=== PATIENT | male | born 1935 | race Caucasian/White ===

== ENCOUNTER 2017-01-15 00:45 | Inpatient (IN) | payer OTHER ==
[2017-01-15] VITALS (10 sets, daily range): BP systolic 95–146; BP diastolic 57–84; PULSE 59–89; TEMP 34.8–36.6; O2SAT 89–97; BMI 31.5
[~2017-01-15] VITALS: Ht 193 cm; Wt 117.8 kg
[2017-01-15] MEDS: NSS + 20MEQ KCL 1000ML 1,000 ML IV SCH ×3 (00:01→17:09)
--- NOTE | 2017-01-15 04:52 | Critical Care Consultation ---
Critical Care Consultation Date of Consultation: Jan 15, 2017. Attending Physician: Mauro Warren MD Reason for Consultation: Hyperglycemia History of Present Illness Vamsi Rosales is a 81yo man with a baseline of dementia causing his history to be limited to medical records from [facility] where he arrived via EMS at 2014 on 01/14/2017 with altered mental status and hyperglycemia of 811. There is report of confusion and lethargy. His , Shana. stated Vamsi hasn't been well for a while now. His mind has been slipping and is becoming more and more forgetful. Within the past week or 2 he has gone 5 days without taking his insulin because he forgot it before bedtime, and then would not get back out of bed to take it. Per his there has been no signs of illness, no fever, no cough, no nausea, vomiting. During his stay at [facility] patient was noted to be free in the high 40s and low 50s at times, despite a pacemaker implant. Per report they did not note pacer spikes; however, they are noted on telemetry at [facility]. According to report patient was asymptomatic during bradycardic events. Patient was noted to have an elevated BUN and creatinine; however, it is unclear what the patient's baseline is, as he is known to have chronic kidney disease. EKG at the [facility] noted sinus with first-degree heart block and right bundle branch, with a heart rate of 59 bpm. There was a single PVC and diffuse mild flattening of his T waves. Chest X -ray was performed with no acute disease noted. Patient underwent CT head without contrast which also demonstrated no acute changes. Patient received 3500 mL bolus and the last note his regular insulin was running at 15 units per hour. Upon arrival to [facility], patient was alert but not oriented to self. Denying generalized pain; however, does state a "wee" bit of left sided abdominal pain in an area where superficial ecchymosis is noted. Appears to be from abdominal injections. Patient's blood sugar noted on arrival is 274. Other lab work pending. He denies fever, chills, headache, dyspnea, cough, chest pain, nausea/ vomiting, or numbness and tingling of the extremities. His temperature was noted to be 34.8 rectally. Patient is not aware of his last bowel movement. Sheriff in place to gravity. Past Medical/Surgical History Medical Problems: Hypothermia nonketotic hyperglycemic-hyperosmolar syndrome Hypothyroidism Coronary artery disease GERD Gout Secondary hyperparathyroidism COPD Anemia Diabetes mellitus Cataracts SHERMAN Arthritis Morbid obesity Cholelithiasis Carpal tunnel syndrome Baseline dementia Peripheral vascular disease Surgical Problems: Cystoscopy ICD insertion Cardiac cath with stent Carpal tunnel decompression Cholecystectomy Family History Noncontributory Social History Smoking Status: Former Smoker (20 pack year history former smoker; unknown quit date) Smokeless Tobacco Use: No Alcohol Use: none Drug Use: none Marital Status: (Shana) Housing Status: lives with significant other Occupation Status: retired Allergies Coded Allergies: HUMBERTO Inhibitors (Verified Allergy, Unknown, UNKNOWN, 01/15/17) Fluticasone (Verified Allergy, Unknown, UNKNOWN, 01/15/17) Latex1 -Allergic Contact Dermititis (Verified Allergy, Unknown, UNKNOWN, ) Milk Protein Extract (Verified Allergy, Unknown, UNKNOWN, 01/15/17) Penicillin V (Verified Allergy, Unknown, UNKNOWN, 01/15/17) Salmeterol (Verified Allergy, Unknown, UNKNOWN, 01/15/17) Home Medications Scheduled Calcitriol (Rocaltrol Cap), 1 CAP PO DAILY Carvedilol (Coreg), 1 TAB PO BID Dutasteride (Avodart), 1 CAP PO DAILY Esomeprazole Magnesium (Nexium), 40 MG PO DAILY Furosemide (Lasix), 40 MG PO DAILY Insulin Aspart (Novolog Flexpen), 10 UNITS SQ BIDM Insulin Detemir (Levemir), 35 UNITS SQ DAILY Insulin Detemir (Levemir), 30 UNITS SQ QPM Isosorbide Mononitrate Ext Rel (Imdur Ext Rel), 1 TAB PO DAILY Levothyroxine Sodium (Levothyroxine Sodium), 1 TAB PO DAILYBB Magnesium Oxide (Mag-Ox), 400 MG PO DAILY Metolazone (Zaroxolyn), 2.5 MG PO DAILY Montelukast Sodium (Montelukast Sodium), 1 TAB PO DAILY Niacin Ext Rel (Niaspan Ext Rel), 500 MG PO DAILY Oxybutynin Chloride (Oxybutynin Chloride ER), 5 MG PO DAILY Potassium Ext Rel (Klor-Con), 20 MEQ PO DAILY Ramipril (Ramipril), 1 CAP PO DAILY Rosuvastatin Calcium (Crestor), 1 TAB PO DAILY Current Inpatient Medications Current Inpatient Medications Medications (Trade) Dose Ordered Sig/Temo Route Start Time Stop Time Status Last Admin Dose Admin Acetaminophen (Tylenol Tab) 650 mg Q4H PRN PO 01/15/17 05:00 02/14/17 04:59 Levalbuterol (Xopenex 1.25MG/ 3ML Neb) 1.25 mg Q4H PRN INH 01/15/17 05:00 02/14/17 04:59 Miscellaneous Information 1 ea 1 ea UD PRN N/A 01/15/17 06:03 02/14/17 06:02 Potassium Chloride/Sodium Chloride (1/2 Nss + 20meq KCl 1000ml) 2,000 ml @ 150 mls/hr [id number] IV 01/15/17 06:00 02/14/17 05:59 01/15/17 06:17 150 MLS/HR Heparin Sodium (Porcine) (Heparin Sq 5000 Unit/0.5ml) 5,000 unit Q8 SQ 01/15/17 14:00 02/14/17 13:59 Review of Systems 12 systems reviewed and negative other than previously mentioned in the HPI. Physical Exam Date Time Temp Pulse Resp B/P Pulse Ox O2 Delivery O2 Flow Rate FiO2 01/15/17 04:15 34.8 89 20 126/82 89 Room Air Vital Signs - as noted Laboratory Data - as noted Physical Exam: General - NAD Eyes - Pupils are equal, 1-2mm, unresponsive to light, EOMI No icterus, gaze conjugate ENT - Mucosa moist, no lesions or candidiasis Neck - Supple, trachea midline, no masses or lymphadenopathy, no JVD or bruits Lungs - No paradoxical chest wall movement, clear to auscultation bilaterally, no wheezes, rales, or rhonchi Heart - Reg rate and rhythm, No murmur, rubs, clicks, or gallops appreciated Abdomen - bilateral lc-umbilical superficial ecchymotic areas, BS present, no bruits noted, tympanic to percussion, soft, nontender, nondistended, no organomegaly, obese abdomen Extremities - evidence of peripheral vascular disease erythematous areas bilateral shins, pitting edema noted, pedal pulses intact, Neuro - Not oriented to self, place, or time.. Does follow simple directions. Strength extremities equal and appropriate bilaterally Reflexes: Bicep, brachioradialis, patellar, and plantar normal and equal CN:EOMI, no facial asymmetry, uvula/tongue midline Laboratory Results Last 24 Hours Test 01/15/17 00:00 01/15/17 05:10 Urine Color YELLOW Urine Appearance CLEAR Urine pH 5.5 Urine Specific [place] 1.020 Urine Protein 1+ Urine Glucose (UA) NEG Urine Ketones NEG Urine Occult Blood 3+ Urine Nitrite NEG Urine Bilirubin NEG Urine Urobilinogen NEG Urine Leukocyte Esterase SMALL Urine RBC 10-30 /hpf Urine WBC >30 /hpf Urine Epithelial Cells 5-10 /lpf Urine Bacteria 1+ Urine Hyaline Casts 1-5 /lpf White Blood Count 13.66 K/uL Red Blood Count 3.88 M/uL Hemoglobin 12.3 g/dL Hematocrit 35.7 % Mean Corpuscular Volume 92.0 fL Mean Corpuscular Hemoglobin 31.7 pg Mean Corpuscular Hemoglobin Concent 34.5 g/dl Platelet Count 152 K/uL Mean Platelet Volume 10.5 fL Neutrophils (%) (Auto) 82.5 % Lymphocytes (%) (Auto) 11.2 % Monocytes (%) (Auto) 5.1 % Eosinophils (%) (Auto) 0.9 % Basophils (%) (Auto) 0.1 % Neutrophils # (Auto) 11.28 K/uL Lymphocytes # (Auto) 1.53 K/uL Monocytes # (Auto) 0.69 K/uL Eosinophils # (Auto) 0.12 K/uL Basophils # (Auto) 0.01 K/uL RDW Standard Deviation 41.3 fL RDW Coefficient of Variation 12.2 % Immature Granulocyte % (Auto) 0.2 % Immature Granulocyte # (Auto) 0.03 K/uL Prothrombin Time 11.4 SECONDS Prothromb Time International Ratio 1.1 Venous Blood pH 7.42 Venous Blood Partial Pressure CO2 61 mmHg Venous Blood Partial Pressure O2 31 mmHg Venous Blood HCO3 38 mmol/L Venous Blood Oxygen Saturation < 60.0 % Venous Blood Base Excess 11.3 mmol/L Sodium Level 146 mmol/L Potassium Level 3.0 mmol/L Chloride Level 102 mmol/L Carbon Dioxide Level 37 mmol/L Anion Gap 7.0 mmol/L Blood Urea Nitrogen 116 mg/dl Creatinine 2.90 mg/dl Est Creatinine Clear Calc Drug Dose 28.5 ml/min Estimated GFR () 22.6 Estimated GFR (Non- 19.5 BUN/Creatinine Ratio 39.9 Random Glucose 225 mg/dl Lactic Acid Level 2.4 mmol/L Calcium Level 9.9 mg/dl Phosphorus Level 4.0 mg/dl Magnesium Level 2.6 mg/dl Total Bilirubin 0.3 mg/dl Direct Bilirubin 0.1 mg/dl Aspartate Amino Transf (AST/SGOT) 35 U/L Alanine Aminotransferase (ALT/SGPT) 41 U/L Alkaline Phosphatase 73 U/L Troponin I 0.022 ng/ml Total Protein 7.9 gm/dl Albumin 2.8 gm/dl Lipase 238 U/L Beta-Hydroxybutyric Acid 0.88 mg/dL Procalcitonin 0.51 ng/mL Diagnostic Results CXR and CT Head Neg at Transferring Hospital EKG repeated at [facility]: Sinus Rhythm with first-degree AV block, right bundle branch block, left anterior fascicular block, bifascicular block. Ventricular rate 60 bpm QTC 502 Assessment & Plan (1) Dehydration (2) Acute on chronic renal failure (3) Bradycardia (4) Diabetes mellitus (5) Hyperglycemia without ketosis (6) Hypothermia (7) Other specified diabetes mellitus with hyperosmolarity without nonketotic hyperglycemic-hyperosmolar coma ([facility]) (8) Leukocytosis (9) Glucosuria (10) Abnormal urinalysis (11) Metabolic alkalosis with respiratory acidosis Endocrine Glucose under 300 after being noted as [address] [facility]; possible overcorrection of glucose at this time Unlikely infectious cause, suspicious for dementia and altered mental status causing noncompliance * Hold insulin temporarily secondary to potassium of 3.0; will correct potassium first * Glycemic control consult placed with pharmacy * Administer 0.45%NSS +20 of K at 150 mL per hour; follow PRP every 4 hours * Close monitoring of potassium secondary to acute on chronic renal failure Renal Baseline BUN/creatinine unknown, known chronic kidney disease, dehydration possibly exacerbating creatinine at this time BUNs/creatinine: 116/2.9 Anion gap 7.0 Beta- Hydroxybutyric Acid 0.88 Metabolic Alkalosis with Respiratory Compensation per VBG * Monitor electrolytes q 4hrs * Continue hydration as noted above; patient previously received 3.5 L resuscitation * No current indication for nephrology consult or dialysis * Strict I's and O's; Sheriff to gravity in place * Hold Home Ramipril, Klor-Con * Repeat PRP every 4 hours Electrolytes Patient's acute on chronic kidney disease in addition with hyperglycemia is at significant risk for continued electrolyte imbalances EKG now demonstrates no hyperinflated changes to the T-wave Corrected Na: Currently 149 * Monitor electrolytes as noted above * Replete potassium now in fluid resuscitation and monitor closely Neuro Patient at some risk for cerebral edema secondary to overcorrection of insulin at transferring hospital. Glucose 811 at [facility] and in the 240s on admission at [facility] Head CT at [facility] prior to glucose correction negative for acute changes * Neuro checks per protocol * Tylenol for pain; patient currently denies pain * Avoid benzodiazepines in elderly patient Cardiology Patient at risk for arrhythmias secondary to electrolyte shifts caused by insulin administration and hyperglycemia Patient denies chest pain; bradycardia noted at the [facility]. 60 bpm per EKG presently Negative troponin * Monitor on telemetry * Repeat EKG every morning * Pacemaker in place * Consider Echo this admission * Hold Home Cardiac meds in setting of bradycardia Respiratory Patient on room air with adequate saturations Chest x-ray negative at [facility] Exam benign for fluid overload VB.42/61/31/38 On Room Air * Provide supplemental oxygen as needed * Monitor VBG and signs of respiratory failure * Consider repeat chest x-ray secondary to significant fluid resuscitation; unknown ejection fraction/history of heart failure * Xopenex PRN SOB Infectious disease Hypothermic, WBCs 13.66 Lactic acid 2.4; Procalcitonin: 0.51 Unlikely infectious process * PCR influenza pending * Monitor fever curve * Follow daily CBC * Hypothermic: Continue [facility] Hematology H&H 12.3/35.7 platelets 152 Coags: PT 11.4 and INR 1.1 No acute signs of bleeding * Follow daily CBC * DVT prophylaxis: Heparin 5000 units q8hrs & SCDs ordered GI Liver Profile & Lipase WNL Hx of GERD * AHA heart healthy and diabetes type 2 mechanically soft ground diet in place with thick nectar liquid consistency * Pt unaware of last BM, monitor for need of Bowel Regimen * Begin Protonix (Home use of Nexium) Disposition * Need to work with Case management for POA if is limited in making decisions * PT/OT * Will Need to obtain PCP records: Dr. Velasquez Collado per [facility] Report CCT: 45 minutes; Not including any billable procedures. Thank you for including us in the care of this patient. Please review Dr. Estuardo Gifford's addendum for further recommendations. Resident Physician Supervision Note: Dr. Emmanuel Nielsen was resident physician during care of patient. I separately evaluated patient and did history and exam. I discussed the case with the resident and generally agree with the findings and plan. Patient still disoriented to location, unclear what his baseline is. Nursing concerned for possible aspiration as he is coughing with his meal. I made him nothing by mouth until formal speech evaluation. She is not requiring an insulin infusion, his hyperosmolar syndrome appears to be resolved. At this time the A1c is still pending. Given additional 500 mL bolus of LR, holding antihypertensives at this time. Patient's critical care needs. I have resolved , stable for downgraded from ICU status. Documented By: Estuardo Gifford, DO
[2017-01-15] MEDS ORDERED: LEVALBUTEROL 1.25MG/3ML NEB INH PRN (05:00)
[2017-01-15] MEDS ORDERED: MoRPHine SULFATE 2 MG/ML CARP IV PRN (05:00)
[2017-01-15] MEDS ORDERED: ACETAMINOPHEN 325 MG TAB PO PRN ×2 (05:00→06:15)
[2017-01-15] MEDS ORDERED: LORAZEPAM 2 MG/ML 1 ML VIAL IV PRN (05:00)
[2017-01-15] MEDS ORDERED: PATIENT'S ALLERGY INFO NEEDS ENTERED SCH (05:15)
[2017-01-15 05:24] LABS: BASO % 0.1 %; BASO ABS # 0.01 K/uL (0-0.2); EOS % 0.9 %; HEMATOCRIT 35.7 % (42-52); IG% 0.2 %; LYMPH % 11.2 %; LYMPH ABS # 1.53 K/uL (1.2-3.4); MEAN CORPUSCULAR HEMOGLOBIN 31.7 pg (25-34); MEAN PLATELET VOLUME 10.5 fL (7.4-10.4); MONO % 5.1 %; NEUT % 82.5 %; PLATELET COUNT 152 K/uL (130-400); RED BLOOD COUNT 3.88 M/uL (4.7-6.1); VEN BLOOD GAS BASE EXCESS 11.3 mmol/L; VENOUS BLOOD GAS PCO2 61 mmHg (38.0-50.0); VENOUS BLOOD GAS PO2 31 mmHg; WHITE BLOOD COUNT 13.66 K/uL (4.8-10.8)
[2017-01-15 05:25] LABS: COMPLETE YES; MEAN CORPUSCULAR HGB CONC 34.5 g/dl (32-36); VEN BLD GAS O2 SATURATION < 60.0 %
[2017-01-15] MEDS ORDERED: PNEUMOCOCCAL POLYSACCHARIDES 25 MCG/0.5 ML VIAL/SYR IM. ONE (05:30)
[2017-01-15] MEDS ORDERED: INFLUENZA VIRUS QUAD VACCINE 0.5 ML SYR IM. ONE (05:30)
[2017-01-15] MEDS ORDERED: PNEUMOCOCCAL ADMINISTRATION CHARGE ONE (05:30)
[2017-01-15] MEDS ORDERED: INFLUENZA ADMINISTRATION CHARGE ONE (05:30)
--- NOTE | 2017-01-15 05:37 | History and Physical ---
History & Physical Date & Time of Service: Jan 15, 2017 at 05:06 Chief Complaint: Altered Mental Status, Nkh, Dehydration Primary Care Physician: Velasquez Lindo D.O. History of Present Illness Source: patient 81 y/o M w/Hx DM, CHF, CAD, CKD, dementia, pacemaker. Pt was sent to [facility] due to altered mentation. He was somnolent and poorly responsive on arrival. He had several lab abnormalities including a Glucose of > 800, acute on chronic renal failure with a markedly elevated BUN. He was transferred to the ICU at [facility] for ICU management. He was hypothermic on arrival and exhibiting bradycardia into the 40s which would trigger his pacemaker. He cannot provide additional information. He has no complaints and is mildly confused on admission although he is fully awake. No additioal details were provided form [facility]. His was not able to provide a detailed medical history. Past Medical/Surgical History 1) CHF - type/grade unclear 2) COPD 3) Obesity 4) CKD - stage not known 5) SHERMAN 6) Pacemaker in situ 7) B/L cataracts 8) BPH 9) Chronic anemia 10) CAD 11) Chronic cystitis 12) DM 2 13) Hyperlipidemia 14) Hypothyroidism 15) Dysphagia 16) Unsteady gait 17) Dementia 18) Lumbar stenosis Family History cannot obtain Social History Smoking Status: Unknown if Ever Smoked Review of Systems Cannot obtain Physical Exam Vital Signs Date Time Temp Pulse Resp B/P Pulse Ox O2 Delivery O2 Flow Rate FiO2 01/15/17 04:15 34.8 89 20 126/82 89 Room Air 01/15/17 04:15 34.8 89 20 126/82 Room Air General Appearance: + pertinent finding (Overweight elderly male - appears in good spirits - does not answer quetions in detail.) Head: normocephalic, atraumatic Eyes: + pertinent finding (Pupils constricted / equal) ENT: normal ENT inspection, hearing grossly normal, TMs normal, pharynx normal Neck: supple, no adenopathy, thyroid normal, no JVD Respiratory/Chest: chest non-tender, lungs clear, + pertinent finding (Poor effort) Cardiovascular: regular rate, rhythm, no murmur, normal peripheral pulses, + pertinent finding (Faint heart sound - limited exam) Abdomen/GI: normal bowel sounds, non tender, soft, + pertinent finding ( Bruising on abdominal lower abdomen - maybe site of heparin injections) Back: normal inspection, no CVA tenderness Extremities/Musculoskelatal: normal range of motion, + pedal edema Neurologic/Psych: basket sorter II-XII nml as tested, no motor/sensory deficits, normal reflexes, + disoriented Skin: normal color, warm/dry, no rash Diagnostics Laboratory Results Results Past 24 Hours Test 01/15/17 04:59 01/15/17 05:01 01/15/17 05:02 Range/Units Microbiology Results 01/15/17 MRSA DNA Surveillance Screen, Aayush Batch Pending WBC 15.75 Hb 12.4 Platelets 134 UA (-) Na 136 K 3.8 Cl 98 Bicarb 25 BUN 129 Creat 3.5 Glu 811 Lactic 2.7 Diagnostic Radiology CXR: clear, cardiomegaly EKG Sinus - RBB - LAFB Impression Assessment and Plan 81 y/o M w/Hx DM, CHF, CAD, CKD, dementia, pacemaker. Pt was sent to [facility] due to altered mentation. He was somnolent and poorly responsive on arrival. He had several lab abnormalities including a Glucose of > 800, acute on chronic renal failure with a markedly elevated BUN. He was transferred to the ICU at [facility] for ICU management. He was hypothermic on arrival and exhibiting bradycardia into the 40s which would trigger his pacemaker. He cannot provide additional information. He has no complaints and is mildly confused on admission although he is fully awake. No additional details were provided form [facility]. His was not able to provide a detailed medical history. 1) DM / NKH - Pt arrived on insulin drip with a POC of 255. He is awake and alert - repeat labs are pending and we will continue the drip per protocol based on the results. 2) Hypothermia - no clear evidence of infection - will apply a bear hugger and check his temp periodically. recheck lactic. 3) ARF - likely acute on chronic due to severe dehydration - aggressive hydration provided - will have to monitor volume status due to CHF history 4) CHF - volume depleted currently - monitor volume status and continue IVF currently - diuretics PRN 5) Bradycardia - may be chronic as pt has pacer - appears functional on monitor 6) Dysphagia is listed in record - we do not know degree - placed on dysphagia diet 7) COPD - no desaturation or evidence of exacerbation - PRN nebs provided 8) Dementia - we have scant information regarding this pt and should make an effort to contact his primary MD Monday Full code confirmed in records - Heparin prophylaxis pending INR Total time for this admit including review of labs, meds, EKG, extensive outpt records - discussion with ER attending and Pt - 45 min - includes critical care time Level of Care Critical Care Resuscitation Status FULL RESUSCITATION VTE Prophylaxis VTE Risk Assessment Done? Y/N: Yes Risk Level: Moderate Given or contraindicated: Unfractionated heparin SQ
[2017-01-15 05:47] LABS: BETA-HYDROXYBUTYRATE 0.88 mg/dL (0.2-2.81); BUN/CREATININE RATIO 39.9 (10-20); CALCIUM 9.9 mg/dl (8.5-10.1); CREATININE 2.9 mg/dl (0.60-1.40)
[2017-01-15] MEDS ORDERED: METO2.5T PO (05:48)
[2017-01-15] MEDS ORDERED: CARV25TA2 PO (05:48)
[2017-01-15] MEDS ORDERED: ROSU20TA PO (05:48)
[2017-01-15] MEDS ORDERED: FRS/40 PO (05:48)
[2017-01-15] MEDS ORDERED: MAGN400T6 PO (05:48)
[2017-01-15] MEDS ORDERED: NXM/40 PO (05:48)
[2017-01-15] MEDS ORDERED: DUTA0.5C PO (05:48)
[2017-01-15] MEDS ORDERED: ISOS30TA3 PO (05:48)
[2017-01-15] MEDS ORDERED: LVMI SQ ×2 (05:48)
[2017-01-15] MEDS ORDERED: LEVO112T4 PO (05:48)
[2017-01-15] MEDS ORDERED: NVLGI/PEN SQ (05:48)
[2017-01-15] MEDS ORDERED: POTA20TA16 PO (05:48)
[2017-01-15] MEDS ORDERED: MONT1TAB5 PO (05:48)
[2017-01-15] MEDS ORDERED: CALC0.2510 PO (05:48)
[2017-01-15] MEDS ORDERED: RAMI5CAP PO (05:49)
[2017-01-15 05:53] LABS: INR 1.1 (0.9-1.1); PROTHROMBIN TIME (PATIENT) 11.4 SECONDS (9.0-12.0)
[2017-01-15] MEDS ORDERED: KCL IV SCH (06:00)
[2017-01-15] MEDS ORDERED: SODIUM CHLOR IV SCH (06:00)
[2017-01-15] MEDS ORDERED: PHARMACY GLYCEMIC MGMT CONSULT PRN (06:03)
[2017-01-15 06:23] LABS: MAGNESIUM 2.6 mg/dl (1.8-2.4)
[2017-01-15 06:25] LABS: MANUAL MICROSCOPIC REQUIRED? YES; URINE APPEARANCE CLEAR (CLEAR); URINE BILIRUBIN NEG (NEG); URINE COLOR YELLOW; URINE NITRITE NEG (NEG); URINE PH 5.5 (4.5-7.5); UROBILINOGEN NEG (NEG)
[2017-01-15 06:27] LABS: REVIEW REQ? NO
[2017-01-15 06:34] LABS: URINE BACTERIA 1+ (NEG); URINE WBC >30 /hpf (0-5)
[2017-01-15 06:47] LABS: INFLUENZA A PCR Neg for Influ A (NEG); INFLUENZA B PCR Neg for Influ B (NEG)
[2017-01-15] MEDS ORDERED: NIAC1TAB59 PO (07:37)
[2017-01-15] MEDS ORDERED: OXYB1TAB31 PO (07:39)
[2017-01-15] MEDS: PANTOprazole SOD 40 MG TAB PO SCH (07:52)
[2017-01-15 08:23] LABS: VEN BLD GAS O2 SATURATION 84.3 %
[2017-01-15] MEDS ORDERED: NURSING VERBAL MED ORDER ONE ×3 (08:45→12:30)
[2017-01-15] MEDS ORDERED: LACTATED RINGER'S 1000ML 500 ML IV ONE (08:45)
[2017-01-15 09:02] LABS: BUN/CREATININE RATIO 43.3 (10-20); CALCIUM 9.9 mg/dl (8.5-10.1); CREATININE 2.7 mg/dl (0.60-1.40)
--- NOTE | 2017-01-15 09:30 | DIAGNOSTIC IMAGING REPORT ---
CHEST ONE VIEW PORTABLE CLINICAL HISTORY: hypothermia dyspnea COMPARISON STUDY: No previous studies for comparison. FINDINGS: Poorly defined parenchymal infiltrate left base. Heart mildly enlarged. Implantable unipolar cardiac pacemaker/defibrillator. Right lung is clear. IMPRESSION: Mild cardia megaly. Poorly defined infiltrate left base Electronically signed by: Giovanni Bowman M.D. 01/15/2017 9:29 AM Dictated Date/Time: 01/15/2017 9:28 AM
--- NOTE | 2017-01-15 10:15 | Pharmacy Progress Note ---
Glycemic Control Intl Consult Date of Service Jan 15, 2017. Scope Glycemic Pharmacist consulted for glycemic control and to write orders per [facility] inpatient glycemic control protocol Objective Weight (Kilograms): 117.400 Accuchecks BSG (last 24hrs): Test 01/15/17 05:10 01/15/17 07:24 01/15/17 08:10 Random Glucose 225 mg/dl (70-99) 196 mg/dl (70-99) Bedside Glucose 182 mg/dl (70-99) Laboratory Data (last 24hrs) Test 01/15/17 05:10 01/15/17 08:10 Anion Gap 7.0 mmol/L 12.0 mmol/L BUN/Creatinine Ratio 39.9 43.3 Blood Urea Nitrogen 116 mg/dl 117 mg/dl Creatinine 2.90 mg/dl 2.70 mg/dl Potassium Level 3.0 mmol/L 3.0 mmol/L Sodium Level 146 mmol/L 144 mmol/L White Blood Count 13.66 K/uL Red Blood Count 3.88 M/uL Hemoglobin 12.3 g/dL Hematocrit 35.7 % Mean Corpuscular Volume 92.0 fL Mean Corpuscular Hemoglobin 31.7 pg Mean Corpuscular Hemoglobin Concent 34.5 g/dl Platelet Count 152 K/uL Mean Platelet Volume 10.5 fL Neutrophils (%) (Auto) 82.5 % Lymphocytes (%) (Auto) 11.2 % Monocytes (%) (Auto) 5.1 % Eosinophils (%) (Auto) 0.9 % Basophils (%) (Auto) 0.1 % Neutrophils # (Auto) 11.28 K/uL Lymphocytes # (Auto) 1.53 K/uL Monocytes # (Auto) 0.69 K/uL Eosinophils # (Auto) 0.12 K/uL Basophils # (Auto) 0.01 K/uL HbA1c Pending Recent Pertinent Medications Outpatient Anti-diabetic Regimen: * Levemir 35 units SQ AM + 30 units SQ PM * NovoLog 10 units SQ BIDM Assessment & Plan ASSESSMENT: * 81yo T2DM male with unknown degree of outpatient control. Suspect somewhat poor control d/t non-compliance secondary to progressing dementia * A1c ordered per protocol * Pt may benefit from simplified outpatient dosing with once a day basal insulin dosing to increase compliance * Pt transferred to [facility] with IV insulin infusion running per protocol * BSG corrected rapidly with aggressive hydration and IV insulin infusion * K+ low at 3mmol/L --> IV insulin infusion held * BSGs are still in rage despite IV insulin infusion on hold. Main therapy for HHS is HYDRATION. Average fluid loss d/t glucose osmotic diuresis is 8-10 liters in HHS. Recommend continuing fluid replacement and initiating conservative SQ insulin regimen for hyperglycemia. * ADA & AACE recommend a goal blood sugar range 140-180 mg/dl for the majority of critically ill & non-critically ill patients. However, more stringent targets may be selected in individual cases. PLAN FOR INPATIENT GLYCEMIC CONTROL: * Discontinue IV insulin infusion * Basal insulin with Lantus 10 units SQ BID (HOLD if BSG < 180mg/dl) * Titrate dosing for a goal AM fasting BSG of ~140mg/dl. Less stringent control warranted based on advanced age and dementia * NovoLog per scale ACHS or Q6hrs while NPO * Goal Range: Low 140 mg/dL - High 180 mg/dL * Correction Factor: 35 mg/dL/unit * Nutritional / Prandial insulin per carb ratio of 1 unit per 12 grams CHO consumed * Based on A1c results, evaluate outpatient regimen and simplify if possible. * Please note that the plan above was derived based on current level of insulin resistance and hospital stress. These recommendations are appropriate for inpatient admission only. Plan of care upon discharge will need to be reassessed to avoid potential outpatient hypo/hyperglycemia. Thank you.
[2017-01-15] MEDS ORDERED: GLUCOSE 40% GEL 15 GM TUBE PO PRN (10:30)
[2017-01-15] MEDS ORDERED: GLUCOSE 10 TABS/TUBE PO PRN (10:30)
[2017-01-15] MEDS ORDERED: DEXTROSE 50% 50 ML SYR IV PRN (10:30)
[2017-01-15] MEDS ORDERED: GLUCAGON FOR INJ 1 MG VIAL SQ PRN (10:30)
[2017-01-15] MEDS: POTASSIUM CHLR 10MEQ / WTR IV SCH ×4 (10:59→14:24)
[2017-01-15] MEDS: INSULIN ASPART 100 UNITS/ML 3 ML PEN SC SCH ×3 (11:00→21:00)
[2017-01-15 13:46] LABS: BUN/CREATININE RATIO 39.9 (10-20); CALCIUM 9.3 mg/dl (8.5-10.1); CREATININE 2.8 mg/dl (0.60-1.40); MAGNESIUM 2.5 mg/dl (1.8-2.4); PHOSPHORUS 4.1 mg/dl (2.5-4.9); POTASSIUM 3.5 mmol/L (3.5-5.1); PROSTATE SPECIFIC ANTIGEN 0.477 ng/ml (0.000-4.000)
--- NOTE | 2017-01-15 14:03 | Progress Note ---
Subjective Date of Service: Jan 15, 2017. Subjective Pt evaluation today including: conversation w/ patient, conversation w/ family , physical exam, chart review, lab review, review of studies, conversation w/ employment consultant, review of inpatient medication list Voiding: zee catheter in place Decreased urine output, 130ml total since 6 AM which has been 6 hour, Patient know name, and place which is hospital but does not know his birthday, and fam members name Review of Systems Constitutional: + fatigue, + weakness Eyes: No diplopia, No discharge, No eye pain, No problem reported, No redness, No see HPI, No worsening of vision ENT: No dental problems, No hearing loss, No nasal symptoms, No problem reported, No see HPI, No sore throat, No tinnitus, No trouble swallowing, No unusual epistaxis Objective Vital Signs Date Time Temp Pulse Resp B/P Pulse Ox O2 Delivery O2 Flow Rate FiO2 01/15/17 12:00 Room Air 01/15/17 12:00 36.4 76 19 127/81 90 Room Air 01/15/17 10:00 36.0 62 19 95/58 94 Room Air 01/15/17 08:00 35.4 70 21 96/57 91 Room Air 01/15/17 08:00 91 Room Air 01/15/17 06:00 59 12 105/69 97 Room Air 01/15/17 04:15 34.8 89 20 126/82 89 Room Air 01/15/17 04:15 34.8 89 20 126/82 Room Air Physical Exam General Appearance: no apparent distress, + obese Eyes: normal inspection, PERRL, EOMI, sclerae normal ENT: normal ENT inspection, hearing grossly normal, pharynx normal Neck: supple, no adenopathy, thyroid normal, no JVD, no carotid bruits, trachea midline Respiratory/Chest: chest non-tender, no respiratory distress, no accessory muscle use, + decreased breath sounds Cardiovascular: regular rate, rhythm, no edema, no gallop, no JVD, no murmur Abdomen: normal bowel sounds, non tender, soft, no organomegaly, no pulsatile mass Extremities: normal range of motion, non-tender, normal inspection, no pedal edema, no calf tenderness, normal capillary refill, pelvis stable Neurologic/Psychiatric: medical appointment scheduler II-XII nml as tested, no motor/sensory deficits, alert, normal mood/affect, oriented x 3 Skin: normal color, warm/dry, no rash Lymphatic: no adenopathy Laboratory Results Last 24 Hours Test 01/15/17 00:00 01/15/17 05:10 01/15/17 07:24 01/15/17 08:10 Urine Color YELLOW Urine Appearance CLEAR Urine pH 5.5 Urine Specific [place] 1.020 Urine Protein 1+ Urine Glucose (UA) NEG Urine Ketones NEG Urine Occult Blood 3+ Urine Nitrite NEG Urine Bilirubin NEG Urine Urobilinogen NEG Urine Leukocyte Esterase SMALL Urine RBC 10-30 /hpf Urine WBC >30 /hpf Urine Epithelial Cells 5-10 /lpf Urine Bacteria 1+ Urine Hyaline Casts 1-5 /lpf Influenza Type A (RT-PCR) Neg for Influ A Influenza Type B (RT-PCR) Neg for Influ B White Blood Count 13.66 K/uL Red Blood Count 3.88 M/uL Hemoglobin 12.3 g/dL Hematocrit 35.7 % Mean Corpuscular Volume 92.0 fL Mean Corpuscular Hemoglobin 31.7 pg Mean Corpuscular Hemoglobin Concent 34.5 g/dl Platelet Count 152 K/uL Mean Platelet Volume 10.5 fL Neutrophils (%) (Auto) 82.5 % Lymphocytes (%) (Auto) 11.2 % Monocytes (%) (Auto) 5.1 % Eosinophils (%) (Auto) 0.9 % Basophils (%) (Auto) 0.1 % Neutrophils # (Auto) 11.28 K/uL Lymphocytes # (Auto) 1.53 K/uL Monocytes # (Auto) 0.69 K/uL Eosinophils # (Auto) 0.12 K/uL Basophils # (Auto) 0.01 K/uL RDW Standard Deviation 41.3 fL RDW Coefficient of Variation 12.2 % Immature Granulocyte % (Auto) 0.2 % Immature Granulocyte # (Auto) 0.03 K/uL Prothrombin Time 11.4 SECONDS Prothromb Time International Ratio 1.1 Venous Blood pH 7.42 7.44 Venous Blood Partial Pressure CO2 61 mmHg 54 mmHg Venous Blood Partial Pressure O2 31 mmHg 50 mmHg Venous Blood HCO3 38 mmol/L 36 mmol/L Venous Blood Oxygen Saturation < 60.0 % 84.3 % Venous Blood Base Excess 11.3 mmol/L 10.0 mmol/L Sodium Level 146 mmol/L 144 mmol/L Potassium Level 3.0 mmol/L 3.0 mmol/L Chloride Level 102 mmol/L 101 mmol/L Carbon Dioxide Level 37 mmol/L 31 mmol/L Anion Gap 7.0 mmol/L 12.0 mmol/L Blood Urea Nitrogen 116 mg/dl 117 mg/dl Creatinine 2.90 mg/dl 2.70 mg/dl Est Creatinine Clear Calc Drug Dose 28.5 ml/min 30.6 ml/min Estimated GFR () 22.6 24.7 Estimated GFR (Non- 19.5 21.3 BUN/Creatinine Ratio 39.9 43.3 Random Glucose 225 mg/dl 196 mg/dl Lactic Acid Level 2.4 mmol/L Calcium Level 9.9 mg/dl 9.9 mg/dl Phosphorus Level 4.0 mg/dl Magnesium Level 2.6 mg/dl Total Bilirubin 0.3 mg/dl Direct Bilirubin 0.1 mg/dl Aspartate Amino Transf (AST/SGOT) 35 U/L Alanine Aminotransferase (ALT/SGPT) 41 U/L Alkaline Phosphatase 73 U/L Troponin I 0.022 ng/ml Total Protein 7.9 gm/dl Albumin 2.8 gm/dl Lipase 238 U/L Beta-Hydroxybutyric Acid 0.88 mg/dL Procalcitonin 0.51 ng/mL Bedside Glucose 182 mg/dl Test 01/15/17 11:01 01/15/17 11:37 01/15/17 12:51 Bedside Glucose 162 mg/dl Osmolality 344 mOsm/kg Sodium Level 145 mmol/L Potassium Level 3.5 mmol/L Chloride Level 102 mmol/L Carbon Dioxide Level 34 mmol/L Anion Gap 9.0 mmol/L Blood Urea Nitrogen 112 mg/dl Creatinine 2.80 mg/dl Est Creatinine Clear Calc Drug Dose 29.5 ml/min Estimated GFR () 23.6 Estimated GFR (Non- 20.4 BUN/Creatinine Ratio 39.9 Random Glucose 179 mg/dl Calcium Level 9.3 mg/dl Phosphorus Level 4.1 mg/dl Magnesium Level 2.5 mg/dl Prostate Specific Antigen 0.477 ng/ml Assessment and Plan 81 y/o M was sent to [facility] due to altered mentation. Per report, eating outside hospital, was somnolent and poorly responsive several lab abnormalities including a Glucose of > 800, acute on chronic renal failure with a markedly elevated BUN. was transferred to the ICU at [facility] [place] for ICU management on 01/14/2017 He was hypothermic on arrival and bradycardia into the 40s which would trigger his pacemaker. w/Hx DM, CHF, CAD, CKD, dementia, pacemaker. Pt Severe hyperglycemia DM / NKH insulin drip, was discontinued patient intake representative, he got some IV fluid, blood glucose was around 190s he is a little bit more awake and alert, I check serum osmolality was 344, with significant elevated BUN/creatinine, and decreased urine output Discussed with child care centre director, and pharmacist, has agreed to continue insulin subcutaneous for now, do not need to restart a insulin drip, Will follow-up in [facility] closely, increase IV fluid and watch from there ARF with hypernatremia, and BUN/creatinine ratio more than 20 likely acute on chronic due to severe dehydration Continue aggressive hydration Need to monitor volume status due to CHF history Hypothermia with altered mental status, mild leukocytosis, and elevated lactase , possible UTI, possible mild sepsis Continue Rocephin, follow-up culture and sensitivity, check ESR CRP, repeat chest x-ray two-view if needed, History of CHF - volume depleted currently - monitor volume status and continue IVF currently - diuretics PRN Bradycardia - may be chronic as pt has pacer - appears functional on monitor Dysphagia, will follow-up continue dysphagia diet History of COPD - no desaturation or evidence of exacerbation - PRN nebs provided Possible Dementia Full code confirmed in records and talked to patient's GI and DVT prophylaxis Continued [facility] stay due to: multiple IV medications needed Discharge planning: uncertain
[2017-01-15] MEDS: HEPARIN SOD 5000 UNIT/0.5 ML CARP SQ SCH ×2 (14:25→21:09)
--- NOTE | 2017-01-15 16:05 | DIAGNOSTIC IMAGING REPORT ---
RENAL ULTRASOUND HISTORY: Renal insufficiency acute on chronic kidney failure COMPARISON: None. FINDINGS: Right kidney: Maximum dimension 14 cm. No evidence for hydronephrosis. Moderate to significant cortical thinning Left kidney: Maximum dimension 13 cm. No evidence for hydronephrosis. Considerable cortical thinning Bladder: No bladder wall thickening. The bilateral ureteral jets were identified. IMPRESSION: Cortical thinning of both kidneys. No evidence for hydronephrosis. Electronically signed by: Giovanni Bowman M.D. 01/15/2017 4:03 PM Dictated Date/Time: 01/15/2017 4:02 PM
[2017-01-15 17:58] LABS: POTASSIUM 3.6 mmol/L (3.5-5.1)
[2017-01-15 18:04] LABS: C-REACTIVE PROTEIN 4.1 mg/dl (0-0.29)
[2017-01-15] MEDS: INSULIN GLARGINE SOLOSTAR 100 UNITS/ML 3 ML PEN SC SCH (21:00)
[2017-01-16] VITALS (7 sets, daily range): BP systolic 113–152; BP diastolic 66–89; PULSE 62–80; TEMP 36.5–37; O2SAT 92–97; Ht 193 cm; Wt 117.8 kg
[2017-01-16] MEDS: NSS + 20MEQ KCL 1000ML 1,000 ML IV SCH ×5 (00:01→23:09)
[2017-01-16 05:43] LABS: BASO % 0.1 %; BASO ABS # 0.01 K/uL (0-0.2); COMPLETE YES; HEMATOCRIT 37.1 % (42-52); IG% 0.4 %; LYMPH % 17.4 %; LYMPH ABS # 1.82 K/uL (1.2-3.4); MEAN CELL VOLUME 96.1 fL (80-100); MEAN CORPUSCULAR HEMOGLOBIN 32.1 pg (25-34); MEAN CORPUSCULAR HGB CONC 33.4 g/dl (32-36); MEAN PLATELET VOLUME 10.8 fL (7.4-10.4); MONO % 4.5 %; NEUT % 76.6 %; PLATELET COUNT 141 K/uL (130-400); RED BLOOD COUNT 3.86 M/uL (4.7-6.1); WHITE BLOOD COUNT 10.45 K/uL (4.8-10.8)
[2017-01-16 06:17] LABS: BUN/CREATININE RATIO 40.5 (10-20); CALCIUM 9.3 mg/dl (8.5-10.1); CREATININE 2.3 mg/dl (0.60-1.40); MAGNESIUM 2.3 mg/dl (1.8-2.4); POTASSIUM 3.6 mmol/L (3.5-5.1)
[2017-01-16] MEDS: HEPARIN SOD 5000 UNIT/0.5 ML CARP SQ SCH ×3 (06:23→21:26)
[2017-01-16 06:24] LABS: PHOSPHORUS 2.9 mg/dl (2.5-4.9)
[2017-01-16 07:11] LABS: ESTIMATED AVERAGE GLUCOSE 289 mg/dl; HA1C FLAG Normal (Normal)
[2017-01-16] MEDS: PANTOprazole SOD 40 MG TAB PO SCH (07:56)
[2017-01-16] MEDS: INSULIN GLARGINE SOLOSTAR 100 UNITS/ML 3 ML PEN SC SCH (08:14)
[2017-01-16] MEDS: INSULIN ASPART 100 UNITS/ML 3 ML PEN SC SCH ×3 (08:20→16:52)
--- NOTE | 2017-01-16 09:19 | Pharmacy Progress Note ---
Glycemic Control: Progress Nt Date of Service Jan 16, 2017. Scope Glycemic Pharmacist consulted by Carolina Nielsen PA-C on 01-15-17 for glycemic control and to write orders per [facility] inpatient glycemic control protocol. Objective Accuchecks BSG (last 24hrs): Test 01/15/17 11:01 01/15/17 12:51 01/15/17 18:07 01/15/17 21:06 Bedside Glucose 162 mg/dl (70-99) 170 mg/dl (70-99) 163 mg/dl (70-99) Random Glucose 179 mg/dl (70-99) Test 01/16/17 05:20 01/16/17 06:32 Random Glucose 175 mg/dl (70-99) Bedside Glucose 184 mg/dl (70-99) Laboratory Data (last 24hrs) Test 01/15/17 12:51 01/15/17 17:18 01/16/17 05:20 Anion Gap 9.0 mmol/L 8.0 mmol/L BUN/Creatinine Ratio 39.9 40.5 Blood Urea Nitrogen 112 mg/dl 93 mg/dl Creatinine 2.80 mg/dl 2.30 mg/dl Potassium Level 3.5 mmol/L 3.6 mmol/L 3.6 mmol/L Sodium Level 145 mmol/L 148 mmol/L White Blood Count 10.45 K/uL Red Blood Count 3.86 M/uL Hemoglobin 12.4 g/dL Hematocrit 37.1 % Mean Corpuscular Volume 96.1 fL Mean Corpuscular Hemoglobin 32.1 pg Mean Corpuscular Hemoglobin Concent 33.4 g/dl Platelet Count 141 K/uL Mean Platelet Volume 10.8 fL Neutrophils (%) (Auto) 76.6 % Lymphocytes (%) (Auto) 17.4 % Monocytes (%) (Auto) 4.5 % Eosinophils (%) (Auto) 1.0 % Basophils (%) (Auto) 0.1 % Neutrophils # (Auto) 8.01 K/uL Lymphocytes # (Auto) 1.82 K/uL Monocytes # (Auto) 0.47 K/uL Eosinophils # (Auto) 0.10 K/uL Basophils # (Auto) 0.01 K/uL HbA1c: Test 01/15/17 05:10 Hemoglobin A1c 11.7 % (4.5-5.6) H Recent Pertinent Medications Outpatient Anti-diabetic Regimen: * Levemir 35 units SQ AM + 30 units SQ PM * NovoLog 10 units SQ BIDM * A1c 11.7% 01/05/17 * EAG: ~289 mg/dL The patient is currently receiving: * Basal insulin: Lantus BID -0 units if BSG <180 mg/dL -10 units if BSG >181 mg/dL * Correctional Insulin: Novolog Correction per scale ACHS Goal Range: Low 140 mg/dL - High 180 mg/dL Correction Factor: 40 mg/dL/unit * Prandial insulin: Per carb ratio of 1 unit per 15 grams CHO consumed Risk Factors for Insulin Resistance: * Diet: NPO Assessment & Plan ASSESSMENT: * 81yo T2DM male with grossly uncontrolled diabetes as outpatient as evidenced by A1c 11.7% this AM. * Poor control was expected d/t non-compliance secondary to progressing dementia * Pt may benefit from simplified outpatient dosing with once a day basal insulin dosing to increase compliance * Pt transferred to [facility] 01/15/17 with IV insulin infusion running per protocol * Insulin drip held and patient transitioned to SQ basal/bolus regimen * Patient received 0 units of insulin SQ yesterday * Continue current regimen X 24 hours and reassess in the AM * ADA & AACE recommend a goal blood sugar range 140-180 mg/dl for the majority of critically ill & non-critically ill patients. However, more stringent targets may be selected in individual cases. PLAN FOR INPATIENT GLYCEMIC CONTROL: * Basal insulin with Lantus 10 units SQ BID (HOLD if BSG < 180mg/dl) * Titrate dosing for a goal AM fasting BSG of ~140mg/dl. Less stringent control warranted based on advanced age and dementia * NovoLog per scale ACHS + 0200 check * Goal Range: Low 140 mg/dL - High 180 mg/dL * Correction Factor: 40 mg/dL/unit * Nutritional / Prandial insulin per carb ratio of 1 unit per 15 grams CHO consumed * A1c added to D/C instructions RECOMMENDATIONS FOR DISCHARGE: * Goal: simplify regimen * Continue to monitor insulin needs and make recommendation closer to discharge * Please note that the plan above was derived based on current level of insulin resistance and hospital stress. These recommendations are appropriate for inpatient admission only. Plan of care upon discharge will need to be reassessed to avoid potential outpatient hypo/hyperglycemia. Thank you.
--- NOTE | 2017-01-16 13:34 | DIAGNOSTIC IMAGING REPORT ---
VIDEO SWALLOW STUDY CLINICAL HISTORY: Aspiration. COMPARISON STUDY: No priors. Fluoroscopy time: 1.4 minutes. FINDINGS: Fluoroscopic guidance was provided to the Department of speech pathology in performing a video swallow study. The patient consumed barium impregnated pudding, nectar thick liquids, and thin barium while the swallowing mechanism was observed in real-time. Silent aspiration was seen with the thin barium and nectar thick liquid textures. No penetration was seen with the pudding texture. Heavy pharyngeal residuals were noted. IMPRESSION: Silent aspiration was seen with thin barium and nectar thick liquid textures. See dedicated speech pathology report for detailed findings and recommendations. Dictated: 01/16/2017 12:22 PM Transcribed: 01/16/2017 1:33 PM [email or web address] Electronically signed by: Vinay Valdivia M.D. 01/16/2017 1:53 PM Dictated Date/Time: 01/16/2017 12:22 PM
--- NOTE | 2017-01-16 15:21 | Hospitalist Progress Note ---
Hospitalist Progress Note Date of Service Jan 16, 2017. Subjective Pt evaluation today including: conversation w/ patient, conversation w/ family , chart review, lab review Medications Medications (Trade) Dose Ordered Sig/Temo Route Start Time Stop Time Status Last Admin Dose Admin Insulin Glargine (Lantus Solostar Pen) SEE PROTOCOL TEXT BID SC 01/15/17 21:00 02/14/17 20:59 01/16/17 08:14 5 UNIT Objective Vital Signs Date Time Temp Pulse Resp B/P Pulse Ox O2 Delivery O2 Flow Rate FiO2 01/16/17 15:11 Room Air 01/16/17 14:11 96 01/16/17 12:25 37.0 68 20 134/66 92 Room Air 01/16/17 11:31 Room Air 01/16/17 08:05 36.8 64 20 152/89 95 Room Air 01/16/17 08:00 Room Air 01/16/17 04:34 36.5 66 20 134/74 96 Room Air 01/16/17 04:00 Room Air 01/16/17 00:01 Room Air 01/15/17 23:21 36.6 65 22 146/84 93 Room Air 01/15/17 20:00 97 Room Air 01/15/17 19:30 36.5 65 20 117/76 97 Room Air 01/15/17 16:00 92 Room Air Physical Exam General Appearance: no apparent distress Eyes: sclerae normal ENT: hearing grossly normal Neck: trachea midline Respiratory/Chest: chest non-tender, lungs clear Cardiovascular: regular rate, rhythm, no gallop Abdomen: soft, no organomegaly Neurologic/Psychiatric: alert Laboratory Results Last 24 Hours Test 01/15/17 17:18 01/15/17 18:07 01/15/17 21:06 01/16/17 05:20 Erythrocyte Sedimentation Rate 40 mm/hr Potassium Level 3.6 mmol/L 3.6 mmol/L Osmolality 342 mOsm/kg C-Reactive Protein 4.10 mg/dl Bedside Glucose 170 mg/dl 163 mg/dl White Blood Count 10.45 K/uL Red Blood Count 3.86 M/uL Hemoglobin 12.4 g/dL Hematocrit 37.1 % Mean Corpuscular Volume 96.1 fL Mean Corpuscular Hemoglobin 32.1 pg Mean Corpuscular Hemoglobin Concent 33.4 g/dl Platelet Count 141 K/uL Mean Platelet Volume 10.8 fL Neutrophils (%) (Auto) 76.6 % Lymphocytes (%) (Auto) 17.4 % Monocytes (%) (Auto) 4.5 % Eosinophils (%) (Auto) 1.0 % Basophils (%) (Auto) 0.1 % Neutrophils # (Auto) 8.01 K/uL Lymphocytes # (Auto) 1.82 K/uL Monocytes # (Auto) 0.47 K/uL Eosinophils # (Auto) 0.10 K/uL Basophils # (Auto) 0.01 K/uL RDW Standard Deviation 43.4 fL RDW Coefficient of Variation 12.6 % Immature Granulocyte % (Auto) 0.4 % Immature Granulocyte # (Auto) 0.04 K/uL Sodium Level 148 mmol/L Chloride Level 108 mmol/L Carbon Dioxide Level 32 mmol/L Anion Gap 8.0 mmol/L Blood Urea Nitrogen 93 mg/dl Creatinine 2.30 mg/dl Est Creatinine Clear Calc Drug Dose 35.9 ml/min Estimated GFR () 30.0 Estimated GFR (Non- 25.9 BUN/Creatinine Ratio 40.5 Random Glucose 175 mg/dl Calcium Level 9.3 mg/dl Phosphorus Level 2.9 mg/dl Magnesium Level 2.3 mg/dl Test 01/16/17 06:32 01/16/17 12:14 Bedside Glucose 184 mg/dl 197 mg/dl Assessment and Plan 81 y/o M transferred to the ICU at [facility] for ICU management on 01/14/2017 He was hypothermic on arrival and bradycardia into the 40s with marked glucose elevation 1. Severe hyperglycemia DM / NKH initially managed with insulin gtt, now basal bolus resolving. 2. ARF with hypernatremia, felt secondary to dehydration cautious hydration with h/o heart failure with hyperglycemia improving with hydration 3. Hypothermia with altered mental status, mild leukocytosis, and elevated lactase, possible UTI, possible left basilar pneumonia Rocephin, follow-up culture and sensitivity continue rocephin. 4. Bradycardia - may be chronic as pt has pacer - has improved with correction of metabolic abnormalities 5. Dysphagia, aspiration precautions and dysphagia diet 6. COPD -stable - PRN nebs provided 7. heparin sc for dvt prevention Full code confirmed in records and talked to patient's by Dr Chapman Continued [facility] stay due to: multiple IV medications needed Discharge planning: uncertain Discharge planning: residential facility (may need once ready for discharge for short term rehab)
[2017-01-16] MEDS ORDERED: NURSING VERBAL MED ORDER ONE (21:00)
[2017-01-17] VITALS: O2SAT 96
[2017-01-17 00:04] VITALS: BP 141/81; PULSE 71; TEMP 36.6; O2SAT 97
[2017-01-17] MEDS: INSULIN ASPART 100 UNITS/ML 3 ML PEN SC SCH ×4 (00:54→17:59)
[2017-01-17] MEDS ORDERED: INSULIN ASPART 100 UNITS/ML 3 ML PEN SC SCH (02:00)
[2017-01-17] MEDS: HEPARIN SOD 5000 UNIT/0.5 ML CARP SQ SCH ×3 (06:33→21:08)
[2017-01-17 06:54] LABS: BASO % 0.1 %; BASO ABS # 0.01 K/uL (0-0.2); COMPLETE YES; EOS % 1.5 %; HEMATOCRIT 36.4 % (42-52); IG% 0.1 %; LYMPH % 19.9 %; LYMPH ABS # 1.62 K/uL (1.2-3.4); MEAN CELL VOLUME 97.1 fL (80-100); MEAN CORPUSCULAR HEMOGLOBIN 32.3 pg (25-34); MEAN CORPUSCULAR HGB CONC 33.2 g/dl (32-36); MEAN PLATELET VOLUME 10.7 fL (7.4-10.4); MONO % 6.6 %; NEUT % 71.8 %; PLATELET COUNT 141 K/uL (130-400); RED BLOOD COUNT 3.75 M/uL (4.7-6.1); WHITE BLOOD COUNT 8.15 K/uL (4.8-10.8)
[2017-01-17 07:19] LABS: BUN/CREATININE RATIO 36.4 (10-20); MAGNESIUM 2.1 mg/dl (1.8-2.4); POTASSIUM 3.6 mmol/L (3.5-5.1)
[2017-01-17 07:25] LABS: PHOSPHORUS 2.2 mg/dl (2.5-4.9)
[2017-01-17] MEDS: PANTOprazole SOD 40 MG TAB PO SCH (07:30)
[2017-01-17] MEDS: INSULIN GLARGINE SOLOSTAR 100 UNITS/ML 3 ML PEN SC SCH (07:34)
[2017-01-17 07:35] VITALS: BP 168/72; PULSE 74; TEMP 36.8; O2SAT 96
[2017-01-17] MEDS ORDERED: INSULIN GLARGINE SOLOSTAR 100 UNITS/ML 3 ML PEN SC SCH (08:00)
[2017-01-17] MEDS: NSS + 20MEQ KCL 1000ML 1,000 ML IV SCH ×2 (08:55→13:56)
--- NOTE | 2017-01-17 09:28 | Pharmacy Progress Note ---
Glycemic Control: Progress Nt Date of Service Jan 17, 2017. Scope Glycemic Pharmacist consulted by Carolina Nielsen PA-C on 01/15/17 for glycemic control and to write orders per [facility] inpatient glycemic control protocol. Objective Accuchecks BSG (last 24hrs): Test 01/16/17 12:14 01/16/17 16:39 01/17/17 02:18 01/17/17 06:34 Bedside Glucose 197 mg/dl (70-99) 214 mg/dl (70-99) 141 mg/dl (70-99) 157 mg/dl (70-99) Test 01/17/17 06:36 Random Glucose 164 mg/dl (70-99) Laboratory Data (last 24hrs) Test 01/17/17 06:36 Anion Gap 8.0 mmol/L BUN/Creatinine Ratio 36.4 Blood Urea Nitrogen 73 mg/dl Creatinine 2.00 mg/dl Potassium Level 3.6 mmol/L Sodium Level 150 mmol/L White Blood Count 8.15 K/uL Red Blood Count 3.75 M/uL Hemoglobin 12.1 g/dL Hematocrit 36.4 % Mean Corpuscular Volume 97.1 fL Mean Corpuscular Hemoglobin 32.3 pg Mean Corpuscular Hemoglobin Concent 33.2 g/dl Platelet Count 141 K/uL Mean Platelet Volume 10.7 fL Neutrophils (%) (Auto) 71.8 % Lymphocytes (%) (Auto) 19.9 % Monocytes (%) (Auto) 6.6 % Eosinophils (%) (Auto) 1.5 % Basophils (%) (Auto) 0.1 % Neutrophils # (Auto) 5.85 K/uL Lymphocytes # (Auto) 1.62 K/uL Monocytes # (Auto) 0.54 K/uL Eosinophils # (Auto) 0.12 K/uL Basophils # (Auto) 0.01 K/uL HbA1c: Test 01/15/17 05:10 Hemoglobin A1c 11.7 % (4.5-5.6) H Recent Pertinent Medications Outpatient Anti-diabetic Regimen: * Levemir 35 units SQ AM + 30 units SQ PM * NovoLog 10 units SQ BIDM * A1c 11.7% 01/05/17 * EAG: ~289 mg/dL The patient is currently receiving: * Basal insulin: Lantus BID -0 units if BSG <180 mg/dL -10 units if BSG >181 mg/dL * Correctional Insulin: Novolog Correction per scale ACHS Goal Range: Low 140 mg/dL - High 180 mg/dL Correction Factor: 40 mg/dL/unit * Prandial insulin: Per carb ratio of 1 unit per 15 grams CHO consumed Risk Factors for Insulin Resistance: * Diet: NPO Assessment & Plan ASSESSMENT: * 81yo T2DM male with grossly uncontrolled diabetes as outpatient as evidenced by A1c 11.7% * Poor control was expected d/t non-compliance secondary to progressing dementia * Pt may benefit from simplified outpatient dosing with once a day basal insulin dosing to increase compliance * BSGs have ranged between 184-214 mg/dL the past 24 hours * Pt remains NPO due to failed swallow eval * A total of 9 units of insulin given yesterday * Give small dose of Lantus this AM as this seems to be appropriate for now * Maintain current Novolog coverage with the exception of tightening goal range slightly * Of note, renal function slowly improving- will monitor closely as this will play a role in insulin sensitivity * ADA & AACE recommend a goal blood sugar range 140-180 mg/dl for the majority of critically ill & non-critically ill patients. However, more stringent targets may be selected in individual cases. Tighten to 120-160 mg/dL- current NPO status makes it difficult to correct BSGs without tighter goal range. PLAN FOR INPATIENT GLYCEMIC CONTROL: * Basal insulin with Lantus 5 units daily * Less stringent control warranted based on advanced age and dementia * NovoLog per scale ACHS * Goal Range: Low 120 mg/dL - High 160 mg/dL * Correction Factor: 40 mg/dL/unit * Nutritional / Prandial insulin per carb ratio of 1 unit per 15 grams CHO consumed * A1c added to D/C instructions RECOMMENDATIONS FOR DISCHARGE: * Goal: simplify regimen * Pt requiring much less insulin here versus outpatient, also has been NPO since admitted with poor renal function * Expect needs to change but need to assess closer to discharge * Unable to make recommendation until case management weighs in * Per CDEs note, family is not helping patient administer insulin doses- this is dangerous given dementia- pt unreliable * Please note that the plan above was derived based on current level of insulin resistance and hospital stress. These recommendations are appropriate for inpatient admission only. Plan of care upon discharge will need to be reassessed to avoid potential outpatient hypo/hyperglycemia. Thank you.
[2017-01-17 15:30] VITALS: BP 148/89; PULSE 66; TEMP 36.6; O2SAT 94
[2017-01-17 16:12] VITALS: O2SAT 94
[2017-01-17] MEDS: SODIUM CHLOR 0.45% + 20MEQ KCL 1,000 ML IV SCH (18:00)
--- NOTE | 2017-01-17 18:37 | Hospitalist Progress Note ---
Hospitalist Progress Note Date of Service Jan 17, 2017. Subjective Pt evaluation today including: conversation w/ patient, conversation w/ family Pain: 0 PO Intake: NPO patient is still confused, symptoms are improving will repeat swallowing eval Neurologic: + problem reported (has not returned to his baseline....improving) Objective Vital Signs Date Time Temp Pulse Resp B/P Pulse Ox O2 Delivery O2 Flow Rate FiO2 01/17/17 15:30 36.6 66 20 148/89 94 Room Air 01/17/17 08:00 Room Air 01/17/17 07:35 36.8 74 18 168/72 96 Room Air 01/17/17 00:04 36.6 71 20 141/81 97 Room Air 01/17/17 00:00 96 Room Air 01/16/17 20:02 36.5 62 18 134/76 96 Room Air Physical Exam General Appearance: no apparent distress Eyes: sclerae normal ENT: hearing grossly normal Neck: supple Respiratory/Chest: chest non-tender Cardiovascular: regular rate, rhythm Abdomen: normal bowel sounds Extremities: normal range of motion Laboratory Results Last 24 Hours Test 01/17/17 00:50 01/17/17 02:18 01/17/17 06:34 01/17/17 06:36 Bedside Glucose 195 mg/dl 141 mg/dl 157 mg/dl White Blood Count 8.15 K/uL Red Blood Count 3.75 M/uL Hemoglobin 12.1 g/dL Hematocrit 36.4 % Mean Corpuscular Volume 97.1 fL Mean Corpuscular Hemoglobin 32.3 pg Mean Corpuscular Hemoglobin Concent 33.2 g/dl Platelet Count 141 K/uL Mean Platelet Volume 10.7 fL Neutrophils (%) (Auto) 71.8 % Lymphocytes (%) (Auto) 19.9 % Monocytes (%) (Auto) 6.6 % Eosinophils (%) (Auto) 1.5 % Basophils (%) (Auto) 0.1 % Neutrophils # (Auto) 5.85 K/uL Lymphocytes # (Auto) 1.62 K/uL Monocytes # (Auto) 0.54 K/uL Eosinophils # (Auto) 0.12 K/uL Basophils # (Auto) 0.01 K/uL RDW Standard Deviation 45.5 fL RDW Coefficient of Variation 12.9 % Immature Granulocyte % (Auto) 0.1 % Immature Granulocyte # (Auto) 0.01 K/uL Sodium Level 150 mmol/L Potassium Level 3.6 mmol/L Chloride Level 114 mmol/L Carbon Dioxide Level 28 mmol/L Anion Gap 8.0 mmol/L Blood Urea Nitrogen 73 mg/dl Creatinine 2.00 mg/dl Est Creatinine Clear Calc Drug Dose 41.3 ml/min Estimated GFR () 35.5 Estimated GFR (Non- 30.6 BUN/Creatinine Ratio 36.4 Random Glucose 164 mg/dl Calcium Level 9.0 mg/dl Phosphorus Level 2.2 mg/dl Magnesium Level 2.1 mg/dl Test 01/17/17 11:49 Bedside Glucose 157 mg/dl Assessment and Plan 81 y/o M transferred to the ICU at [facility] for ICU management on 01/14/2017 He was hypothermic on arrival and bradycardia into the 40s with marked glucose elevation 1. Severe hyperglycemia DM / NKH initially managed with insulin gtt, now basal bolus resolving. Will check CT of head and repeat swallowing eval tomorrow discussed with the patient's daughter. 2. ARF with hypernatremia, felt secondary to dehydration cautious hydration with h/o heart failure with hyperglycemia improving with hydration Acute on chronic renal failure. Continue iv hydration change to .5NS with 20 kcl. 3. Hypothermia with altered mental status, mild leukocytosis, and elevated lactase, possible UTI, possible left basilar pneumonia Rocephin, follow-up culture and sensitivity continue rocephin. 4. Bradycardia - may be chronic as pt has pacer - has improved with correction of metabolic abnormalities 5. Dysphagia, aspiration precautions and dysphagia diet 6. COPD -stable - PRN nebs provided 7. heparin sc for dvt prevention Full code confirmed in records and talked to patient's by Dr Chapman Continued [facility] stay due to: multiple IV medications needed Discharge planning: uncertain [facility]charge planning[facility] facility
--- NOTE | 2017-01-17 19:23 | DIAGNOSTIC IMAGING REPORT ---
HEAD CT NONCONTRAST CT DOSE: 712.55 mGy.cm HISTORY: change in mental status TECHNIQUE: Multiaxial CT images of the head were performed without the use of intravenous contrast. Automated exposure control was utilized for this study. Comparison: None. Findings: The paranasal sinuses and mastoid air cells are clear. The calvarium and skull base are intact. There is no mass, hematoma, midline shift, acute infarct. White matter hypodensity is nonspecific but suggestive of microvascular ischemic change. The ventricles and sulci demonstrate mild age-related involutional changes. Impression: No acute intracranial abnormality. Atrophy and microvascular ischemic changes. Electronically signed by: Mukesh Hayes M.D. 01/17/2017 7:22 PM Dictated Date/Time: 01/17/2017 7:16 PM
[2017-01-18] VITALS: O2SAT 94
[2017-01-18] MEDS: SODIUM CHLOR 0.45% + 20MEQ KCL 1,000 ML IV SCH ×3 (01:00→17:20)
[2017-01-18 01:29] VITALS: BP 176/84; PULSE 63; TEMP 36.7; O2SAT 96
[2017-01-18] MEDS: INSULIN ASPART 100 UNITS/ML 3 ML PEN SC SCH ×5 (06:00→22:00)
[2017-01-18] MEDS: HEPARIN SOD 5000 UNIT/0.5 ML CARP SQ SCH ×3 (06:39→22:07)
[2017-01-18 07:31] LABS: BASO % 0.1 %; BASO ABS # 0.01 K/uL (0-0.2); COMPLETE YES; EOS % 1.8 %; HEMATOCRIT 39.1 % (42-52); IG% 0.2 %; LYMPH ABS # 1.36 K/uL (1.2-3.4); MEAN CORPUSCULAR HEMOGLOBIN 32.3 pg (25-34); MEAN PLATELET VOLUME 10.6 fL (7.4-10.4); MONO % 8.5 %; NEUT % 73.4 %; PLATELET COUNT 148 K/uL (130-400); RED BLOOD COUNT 3.99 M/uL (4.7-6.1); WHITE BLOOD COUNT 8.49 K/uL (4.8-10.8)
[2017-01-18] MEDS: PANTOprazole SOD 40 MG TAB PO SCH (08:00)
[2017-01-18 08:03] LABS: BUN/CREATININE RATIO 27.9 (10-20); CALCIUM 9.1 mg/dl (8.5-10.1); CREATININE 1.8 mg/dl (0.60-1.40); MAGNESIUM 1.8 mg/dl (1.8-2.4); PHOSPHORUS 2.2 mg/dl (2.5-4.9); POTASSIUM 3.9 mmol/L (3.5-5.1)
[2017-01-18] MEDS: INSULIN GLARGINE SOLOSTAR 100 UNITS/ML 3 ML PEN SC SCH (08:14)
[2017-01-18 08:22] VITALS: BP 146/83; PULSE 68; TEMP 36.6; O2SAT 97
--- NOTE | 2017-01-18 12:02 | DIAGNOSTIC IMAGING REPORT ---
VIDEO SWALLOW HISTORY: Aspiration Prior failed video swallow TECHNIQUE: Video fluoroscopic evaluation of swallowing was performed in the AP and lateral projections by the speech pathology staff. The patient is fed nectar-thick and thin liquid barium, a barium coated wafer, and barium pudding. FLUOROSCOPY TIME: 2 minutes. COMPARISON STUDY: 01/16/2017 FINDINGS: Persistent signs aspiration with thin liquids. No significant cough reflex. Thickened liquids all show intermittent aspiration. Moderate vallecular pooling. IMPRESSION: 1. Aspiration is again noted with thin liquids and thickened liquids. No major change from the prior study. No significant cough reflex 2. Please see the speech pathologist report for detailed findings and recommendations. Electronically signed by: Giovanni Bowman M.D. 01/18/2017 12:01 PM Dictated Date/Time: 01/18/2017 11:59 AM
--- NOTE | 2017-01-18 15:55 | Palliative Care Consultation ---
Consultation Date of Consultation: Jan 18, 2017. Requesting Physician: Dr. Craft Attending Physician: Dr. Craft Reason for Consultation: Goals of care History of Present Illness This 81 year old male patient presented to the hospital as a transfer from [facility] with complaints of altered mental status, hyperosmolar syndrome with an initial blood sugar at [facility] of >800, acute on chronic kidney disease, and bradycardia. He was sent to our ICU here at [facility]. His hyperosmolar syndrome has resolved and his creatinine has improved from 2.90 to 1.80. Patient does have a pacemaker which [facility] staff said was not capturing during the bradycardic episodes, but once here at [facility] it was apparently functioning properly. This patient has a significant past medical history of dementia and other problems listed below. His states that his dementia seems to be getting worse and he often forgets to take his medicine and sometimes goes days without taking his insulin. While here, the nurses noted that the patient was coughing while eating and were concerned for aspiration. He was made NPO and had a video swallow study which determined he was in fact aspirating. The patient's mental status had improved some over the last couple days and the test was repeated. It again showed aspiration. The patient and his family were not aware of this issue before but the did note that for some time now he has been coughing during meals for quite some time. Given this new information and the progression of this patient's dementia and disease, palliative care consulted to assist with establishing goals of care. I met with the patient in room 454. He was quite drowsy and pleasantly confused. He really could not comprehend my questions about goals of care and feeding. He continued to say, "I really don't know right now." He denied any pain or discomfort at this time but stated he occasionally has some abdominal pain but couldn't give details about it. I did note some white plaques on the patient's tongue, appears to have oral candidiasis. I spoke with the patient's , Shana, and daughter, Kendra Goode, on the phone. They both are aware that the patient failed his second video swallow study and is in fact aspirating. We discussed the risk of continuing feeding such as aspiration pneumonia and they both verbalized understanding. We discussed a feeding tube and they both agreed that the patient would not want that, so they would like to continue comfort feeding despite the risk. We discussed code status and the and daughter also both agreed that should the patient's heart stop or he were to stop breathing, they would not want CPR or intubation. I expressed my concern about the patient being home with the as he has been forgetting his medicine and his dementia is worsening. Kendra stated that patient has actually lost 30lb recently as well. Their goal is for the patient to go to rehab after hospitalization and then go back home with some in-home services. As a family they are going to start discussing advance care planning. Past Medical/Surgical History Medical History: Dementia DM CHF CAD COPD SHERMAN Cataracts Chronic cystitis HLD Hypothyroidism Unsteady gait Lumbar stenosis Obesity Surgical History: Pacemaker Social History Smoking Status: Former Smoker (20 pack year history former smoker; unknown quit date) Drug Use: none Marital Status: (Shana) Occupation Status: retired Review of Systems Constitutional: + weakness, + weight loss (reported by daughter) Respiratory: + cough, No shortness of breath Cardiac: No chest pain, No edema Abdomen: No nausea, No pain, No vomiting Male : No problem reported Neurologic: + see HPI Allergies Coded Allergies: HUMBERTO Inhibitors (Verified Allergy, Unknown, UNKNOWN, 01/15/17) Fluticasone (Verified Allergy, Unknown, UNKNOWN, 01/15/17) Latex1 -Allergic Contact Dermititis (Verified Allergy, Unknown, UNKNOWN, ) Penicillin V (Verified Allergy, Unknown, UNKNOWN, 01/15/17) Salmeterol (Verified Allergy, Unknown, UNKNOWN, 01/15/17) Medications Current Inpatient Medications Medications (Trade) Dose Ordered Sig/Temo Route Start Time Stop Time Status Last Admin Dose Admin Acetaminophen (Tylenol Tab) 650 mg Q4H PRN PO 01/15/17 05:00 02/14/17 04:59 Levalbuterol (Xopenex 1.25MG/ 3ML Neb) 1.25 mg Q4H PRN INH 01/15/17 05:00 02/14/17 04:59 Miscellaneous Information (Consult Glycemic Management Pharmacy) 1 ea UD PRN N/A 01/15/17 06:03 02/14/17 06:02 Heparin Sodium (Porcine) (Heparin Sq 5000 Unit/0.5ml) 5,000 unit Q8 SQ 01/15/17 14:00 02/14/17 13:59 01/18/17 14:07 5,000 UNIT Pantoprazole Sodium (Protonix Tab) 40 mg QAM PO 01/15/17 09:00 02/14/17 08:59 Glucose (Glucose 40% Gel) 15-30 GRAMS 15 GRAMS... UD PRN PO 01/15/17 10:30 02/14/17 10:29 Glucose (Glucose Chew Tab) 4-8 Tablets 4 Tabl... UD PRN PO 01/15/17 10:30 02/14/17 10:29 Dextrose (Dextrose 50% 50ML Syringe) 25-50ML OF 50% DW IV FOR... UD PRN IV 01/15/17 10:30 02/14/17 10:29 Glucagon (Glucagon Inj) 1 mg UD PRN SQ 01/15/17 10:30 02/14/17 10:29 Insulin Aspart (novoLOG ASPART) SLIDING SCALE Q6 SC 01/17/17 00:00 02/16/17 00:00 01/17/17 00:54 1 UNITS Insulin Glargine 5 unit 5 unit DAILY SC 01/18/17 08:00 02/17/17 07:59 01/18/17 08:14 5 UNIT Potassium Chloride/Sodium Chloride (1/2 Nss + 20meq KCl 1000ml) 1,000 ml @ 125 mls/hr Q8H IV 01/17/17 17:00 02/16/17 16:59 01/18/17 08:12 125 MLS/HR Physical Exam Date Time Temp Pulse Resp B/P Pulse Ox O2 Delivery O2 Flow Rate FiO2 01/18/17 08:22 36.6 68 18 146/83 97 Room Air 01/18/17 08:00 Room Air 01/18/17 01:29 36.7 63 16 176/84 96 Room Air 01/18/17 00:00 94 Room Air 01/17/17 16:12 94 Room Air 01/17/17 15:30 36.6 66 20 148/89 94 Room Air General Appearance: no apparent distress, + obese Neck: no JVD, trachea midline Respiratory: no respiratory distress, no accessory muscle use, + decreased breath sounds (bilateral bases) Cardiovascular: regular rate, rhythm, + systolic murmur, + normal peripheral pulses Abdomen: normal bowel sounds, non tender, soft Musculoskeletal: normal Neurologic/Psychiatric: + disoriented, + pertinent finding (drowsy) Laboratory Results Last 24 Hours Test 01/17/17 17:57 01/18/17 00:39 01/18/17 05:59 01/18/17 06:55 Bedside Glucose 147 mg/dl 142 mg/dl 141 mg/dl White Blood Count 8.49 K/uL Red Blood Count 3.99 M/uL Hemoglobin 12.9 g/dL Hematocrit 39.1 % Mean Corpuscular Volume 98.0 fL Mean Corpuscular Hemoglobin 32.3 pg Mean Corpuscular Hemoglobin Concent 33.0 g/dl Platelet Count 148 K/uL Mean Platelet Volume 10.6 fL Neutrophils (%) (Auto) 73.4 % Lymphocytes (%) (Auto) 16.0 % Monocytes (%) (Auto) 8.5 % Eosinophils (%) (Auto) 1.8 % Basophils (%) (Auto) 0.1 % Neutrophils # (Auto) 6.23 K/uL Lymphocytes # (Auto) 1.36 K/uL Monocytes # (Auto) 0.72 K/uL Eosinophils # (Auto) 0.15 K/uL Basophils # (Auto) 0.01 K/uL RDW Standard Deviation 46.1 fL RDW Coefficient of Variation 12.9 % Immature Granulocyte % (Auto) 0.2 % Immature Granulocyte # (Auto) 0.02 K/uL Sodium Level 150 mmol/L Potassium Level 3.9 mmol/L Chloride Level 114 mmol/L Carbon Dioxide Level 27 mmol/L Anion Gap 9.0 mmol/L Blood Urea Nitrogen 50 mg/dl Creatinine 1.80 mg/dl Est Creatinine Clear Calc Drug Dose 45.9 ml/min Estimated GFR () 40.3 Estimated GFR (Non- 34.8 BUN/Creatinine Ratio 27.9 Random Glucose 152 mg/dl Calcium Level 9.1 mg/dl Phosphorus Level 2.2 mg/dl Magnesium Level 1.8 mg/dl Test 01/18/17 11:41 Bedside Glucose 149 mg/dl Assessment & Plan Palliative Performance Scale: 40 % Problem list: Altered mental status/dementia Weakness White plaques on tongue/thrush Weight loss Dysphagia and aspiration Hyperglycemia ARF Hypothermia-resolved Bradycardia- has pacemaker, improved COPD Goals of care Palliative care plan: Discussed with patient, patient's Shana, daughter Kendra, and Dr. Craft. -DNR/DNI per the and daughter's decision on the patient's behalf as he is unable to make his own decisions. -No feeding tube. Plan to continue comfort feeding despite risk of aspiration. Will need speech therapist's official recommendations for food consistency. -Rehab after hospitalization, then home with home health. I fear that patient's level of care will increase with time and I am concerned about the 's ability to keep up. I expressed this concern to the and daughter. -Recommend starting Nystatin for the oral thrush -No symptom management needs at this time. Thank you kindly for this consult. I will follow as needed.
--- NOTE | 2017-01-18 16:11 | Hospitalist Progress Note ---
Hospitalist Progress Note Date of Service Jan 18, 2017. Subjective Pt evaluation today including: conversation w/ patient, conversation w/ family , physical exam, conversation w/ big machine consultant, review of inpatient medication list PO Intake: npo patient is hungry states nothing is really working well. He was sleep. Failed swallowing eval today Additional Comments: unable to do because of illness Medications Medications (Trade) Dose Ordered Sig/Temo Route Start Time Stop Time Status Last Admin Dose Admin Insulin Glargine 5 unit 5 unit DAILY SC 01/18/17 08:00 02/17/17 07:59 01/18/17 08:14 5 UNIT Potassium Chloride/Sodium Chloride (1/2 Nss + 20meq KCl 1000ml) 1,000 ml @ 125 mls/hr Q8H IV 01/17/17 17:00 02/16/17 16:59 01/18/17 08:12 125 MLS/HR Objective Vital Signs Date Time Temp Pulse Resp B/P Pulse Ox O2 Delivery O2 Flow Rate FiO2 01/18/17 08:22 36.6 68 18 146/83 97 Room Air 01/18/17 08:00 Room Air 01/18/17 01:29 36.7 63 16 176/84 96 Room Air 01/18/17 00:00 94 Room Air 01/17/17 16:12 94 Room Air Physical Exam General Appearance: no apparent distress Eyes: sclerae normal ENT: hearing grossly normal Neck: supple Respiratory/Chest: lungs clear Cardiovascular: regular rate, rhythm Abdomen: normal bowel sounds Laboratory Results Last 24 Hours Test 01/17/17 17:57 01/18/17 00:39 01/18/17 05:59 01/18/17 06:55 Bedside Glucose 147 mg/dl 142 mg/dl 141 mg/dl White Blood Count 8.49 K/uL Red Blood Count 3.99 M/uL Hemoglobin 12.9 g/dL Hematocrit 39.1 % Mean Corpuscular Volume 98.0 fL Mean Corpuscular Hemoglobin 32.3 pg Mean Corpuscular Hemoglobin Concent 33.0 g/dl Platelet Count 148 K/uL Mean Platelet Volume 10.6 fL Neutrophils (%) (Auto) 73.4 % Lymphocytes (%) (Auto) 16.0 % Monocytes (%) (Auto) 8.5 % Eosinophils (%) (Auto) 1.8 % Basophils (%) (Auto) 0.1 % Neutrophils # (Auto) 6.23 K/uL Lymphocytes # (Auto) 1.36 K/uL Monocytes # (Auto) 0.72 K/uL Eosinophils # (Auto) 0.15 K/uL Basophils # (Auto) 0.01 K/uL RDW Standard Deviation 46.1 fL RDW Coefficient of Variation 12.9 % Immature Granulocyte % (Auto) 0.2 % Immature Granulocyte # (Auto) 0.02 K/uL Sodium Level 150 mmol/L Potassium Level 3.9 mmol/L Chloride Level 114 mmol/L Carbon Dioxide Level 27 mmol/L Anion Gap 9.0 mmol/L Blood Urea Nitrogen 50 mg/dl Creatinine 1.80 mg/dl Est Creatinine Clear Calc Drug Dose 45.9 ml/min Estimated GFR () 40.3 Estimated GFR (Non- 34.8 BUN/Creatinine Ratio 27.9 Random Glucose 152 mg/dl Calcium Level 9.1 mg/dl Phosphorus Level 2.2 mg/dl Magnesium Level 1.8 mg/dl Test 01/18/17 11:41 Bedside Glucose 149 mg/dl Diagnostic Results Last Resulted CBC 01/18/17 06:55 Red Blood Count 3.99, Mean Corpuscular Volume 98.0, Mean Corpuscular Hemoglobin 32.3, Mean Corpuscular Hemoglobin Concent 33.0, Mean Platelet Volume 10.6, Neutrophils (%) (Auto) 73.4, Lymphocytes (%) (Auto) 16.0, Monocytes (%) (Auto) 8.5, Eosinophils (%) (Auto) 1.8, Basophils (%) (Auto) 0.1, Neutrophils # (Auto) 6.23, Lymphocytes # (Auto) 1.36, Monocytes # (Auto) 0.72, Eosinophils # (Auto) 0.15, Basophils # (Auto) 0.01 Last Resulted BMP 01/18/17 06:55 Assessment and Plan 81 y/o M transferred to the ICU at [facility] for ICU management on 01/14/2017 He was hypothermic on arrival and bradycardia into the 40s with marked glucose elevation 1. Severe hyperglycemia DM / NKH initially managed with insulin gtt, now basal bolus resolving. head ct negative 2. ARF with hypernatremia, felt secondary to dehydration cautious hydration with h/o heart failure with hyperglycemia improving with hydration Acute on chronic renal failure. Continue iv hydration change to .5NS with 20 kcl. I am going to stop IV fluids and advance his diet 3. Hypothermia with altered mental status, mild leukocytosis, and elevated lactase, possible UTI, possible left basilar pneumonia Rocephin, follow-up culture and sensitivity continue rocephin. 4. Bradycardia - may be chronic as pt has pacer - has improved with correction of metabolic abnormalities 5. Dysphagia, aspiration precautions and dysphagia diet 6. COPD -stable - PRN nebs provided 7. heparin sc for dvt prevention 8. Goals of care discussed with Palliative Care and Patient's . Code status will be changed to DNR. Feeding tube would not be helpful in the context of advanced dementia as the etiology for his swallowing difficulties. Comfort feedings have been explained to the family and ordered. Patient will go to SNF for rehab and than home with hospice. If the patient is not able to eat, which is his present situation, his prognosis is 2-3 weeks at most. Discharge planning: uncertain [facility]charge planning[facility]
[2017-01-19] VITALS: O2SAT 98
[2017-01-19 00:03] VITALS: BP 127/81; PULSE 70; TEMP 36.8; O2SAT 98
[2017-01-19] MEDS: SODIUM CHLOR 0.45% + 20MEQ KCL 1,000 ML IV SCH ×2 (01:00→09:03)
[2017-01-19 06:42] LABS: BASO % 0.1 %; BASO ABS # 0.01 K/uL (0-0.2); COMPLETE YES; EOS % 1.8 %; HEMATOCRIT 36.1 % (42-52); IG% 0.3 %; LYMPH % 18.7 %; LYMPH ABS # 1.66 K/uL (1.2-3.4); MEAN CELL VOLUME 96.8 fL (80-100); MEAN CORPUSCULAR HEMOGLOBIN 31.6 pg (25-34); MEAN CORPUSCULAR HGB CONC 32.7 g/dl (32-36); MEAN PLATELET VOLUME 10.4 fL (7.4-10.4); NEUT % 70.1 %; PLATELET COUNT 132 K/uL (130-400); RED BLOOD COUNT 3.73 M/uL (4.7-6.1); WHITE BLOOD COUNT 8.87 K/uL (4.8-10.8)
[2017-01-19] MEDS: HEPARIN SOD 5000 UNIT/0.5 ML CARP SQ SCH ×2 (06:48→14:17)
[2017-01-19 07:17] LABS: BUN/CREATININE RATIO 30.1 (10-20); CALCIUM 8.5 mg/dl (8.5-10.1); CREATININE 1.6 mg/dl (0.60-1.40); MAGNESIUM 1.7 mg/dl (1.8-2.4); POTASSIUM 3.8 mmol/L (3.5-5.1)
[2017-01-19 08:00] VITALS: BP 143/81; PULSE 65; TEMP 36.6; O2SAT 95
[2017-01-19] MEDS: PANTOprazole SOD 40 MG TAB PO SCH (08:34)
[2017-01-19] MEDS: INSULIN GLARGINE SOLOSTAR 100 UNITS/ML 3 ML PEN SC SCH (08:37)
[2017-01-19] MEDS: INSULIN ASPART 100 UNITS/ML 3 ML PEN SC SCH ×2 (09:00→12:28)
[2017-01-19] MEDS ORDERED: NVLGIPEN SC (13:30)
[2017-01-19] MEDS ORDERED: INSDGIPEN SC (13:30)
--- NOTE | 2017-01-19 13:53 | Discharge Instructions ---
Discharge Instructions Date of Service Jan 19, 2017. 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 Discharge Goals Goal(s): Improve function (family would like to be able to take him home...PT eval and tx) Activity Recommendations Activity Limitations: per Instructions/Follow-up section . Instructions / Follow-Up Instructions / Follow-Up Do Not Rehospitalize. Patient has end stage dementia with recurrent aspiration. Code DNR. Current Hospital Diet Comfort feeds patient is aspirating with end stage dementia. Please assist the patient with eating at all times. Discharge Diet Recommended Diet: Regular Diet Pending Studies Studies pending at discharge: no Laboratory Results Hemoglobin A1c Test 01/15/17 05:10 Range/Units Estimated Average Glucose 289 mg/dl Hemoglobin A1c 11.7 H 4.5-5.6 % Medical Emergencies . Who to Call and When: Medical Emergencies: If at any time you feel your situation is an emergency, please call 911 immediately. . Non-Emergent Contact Non-Emergency issues call your: Primary Care Provider . Past History Medical & Surgical History: (1) Dementia (2) Diabetes mellitus (3) Other specified diabetes mellitus with hyperosmolarity without nonketotic hyperglycemic-hyperosmolar coma (NKHHC) . "Provider Documentation" section prepared by Estuardo Craft. VTE Core Measure Inpt VTE Proph given/why not?: Unfractionated heparin SQ
[2017-01-19 15:23] VITALS: BP 150/88; PULSE 68; TEMP 36.8; O2SAT 96
--- NOTE | 2017-01-19 15:58 | Pharmacy Progress Note ---
Glycemic: Assessment & Plan Date of Service Jan 19, 2017. Assessment & Plan The patient is currently receiving only the 5 units of Lantus per day. No Novolog in past 3 days. BSGs ranging 133 - 178 mg/dl over the past 24hrs, which is acceptable. For patient comfort, DC insulins and BSG checks. Pharmacy will sign off. Please feel free to call us if any further information is needed. Thanks. * Please note that the plan above was derived based on current level of insulin resistance and hospital stress. These recommendations are appropriate for inpatient admission only. Plan of care upon discharge will need to be reassessed to avoid potential outpatient hypo/hyperglycemia.
[2017-01-19 16:58] VITALS: BP 150/88; PULSE 68; TEMP 36.8; O2SAT 96
[2017-01-19] MEDS ORDERED: NYSTATIN SUSP 500,000 U/5 ML UDC PO SCH (17:00)
--- NOTE | 2017-01-30 13:36 | DISCHARGE SUMMARY ---
Please see dictated H\T\P for full details of his presentation. The patient is Vamsi Rosales, he is an 81-year-old who has history of diabetes, congestive heart failure, coronary artery disease, chronic kidney disease, and dementia with pacemaker. He presented originally to [facility] due to altered mental status. He was somnolent and poorly responsive on arrival. Glucose was greater than 800 with acute on chronic renal failure. He was transferred to [facility] for ICU management. He was also hypothermic and bradycardic. He was admitted to the intensive care unit. He was transferred for ICU management. When he arrived on insulin drip, his point of care was 255, he was awake and alert. For hypothermia bear hugger was applied. For acute renal failure he received aggressive IV hydration. He was seen in consultation for critical care by Dr. Estuardo Gifford. Critical care consultation was concerning for the possibility of aspiration pneumonia. Hyperosmolar state had resolved and the patient was downgraded from the intensive care unit. The patient's mental status during his hospital stay improved. Unfortunately, he had 2 separate video swallowing studies by speech therapy, both revealed silent aspiration with thin barium and nectar thick liquid textures. First was performed on January 16 and the second was performed on January 18. CAT scan of the head was performed showed no acute intracranial abnormalities. Based on his dementia, which on conversation with his family has been progressing. He started comfort feedings, which were explained to the family. He was deemed stable for discharge to a senior care facility for rehabilitation. A palliative care consultation was obtained to discuss goals of care. His prognosis based upon his aspiration is less than 6 months with his advancing dementia. Family was made aware of this and they do not want a feeding tube. The patient would not want a feeding tube and he should not be resuscitated. He also should not be re-hospitalized, this was discussed in detail with the patient's family. In addition, if the patient were to be transferred out of the facility hospice services would be most appropriate to help the patient's family care for him. The patient was seen by Claudia Charles for palliative care. DISCHARGE DIAGNOSES: 1. Advanced dementia, complicated by aspiration. 2. Congestive heart failure. 3. Chronic obstructive pulmonary disease. 4. Obesity. 5. Obstructive sleep apnea. 6. Chronic anemia. 7. Coronary artery disease. 8. Diabetes. 9. Hyperlipidemia. 10. Hypothyroidism. 11. Lumbar stenosis. Time spent reviewing the chart, discussing with the patient's family on the day of discharge 40 minutes.
== END 2017-01-19 18:03 | disposition hospice, inpatient (51) | DRG 682 ==
LOC: ENRESERVDT → ENRESERVTM → C.MSICU 04:29 → C.2T 15:31 → C.MS4W 01-16 18:17 → EDBEDREQ 01-16 18:42 → C.MS4W 01-17 09:30
PROVIDERS: ADMIT Internal Medicine; ATTEND Hospitalist
DX: N17.9 Acute kidney failure, unspecified (principal); E11.00 Type 2 diabetes mellitus with hyperosmolarity without nonketotic hyperglycemic-hyperosmolar coma (NKHHC); J44.1 Chronic obstructive pulmonary disease with (acute) exacerbation; E87.3 Alkalosis; Z51.5 Encounter for palliative care; E87.2 Acidosis; E86.0 Dehydration; I50.9 Heart failure, unspecified; I25.10 Atherosclerotic heart disease of native coronary artery without angina pectoris; F03.90 Unspecified dementia, unspecified severity, without behavioral disturbance, psychotic disturbance, mood disturbance, and anxiety; Z95.0 Presence of cardiac pacemaker; N18.9 Chronic kidney disease, unspecified; E66.9 Obesity, unspecified; G47.33 Obstructive sleep apnea (adult) (pediatric); N40.0 Benign prostatic hyperplasia without lower urinary tract symptoms; E78.5 Hyperlipidemia, unspecified; R00.1 Bradycardia, unspecified; R13.10 Dysphagia, unspecified; E03.9 Hypothyroidism, unspecified; Z87.891 Personal history of nicotine dependence